=== PATIENT | female | born 1940 | race Two or more races ===

== ENCOUNTER 2018-02-27 12:46 | Emergency (ER) | payer MEDICARE, OTHER ==
[2018-02-27 12:51] VITALS: BP 130/63; PULSE 104; TEMP 98.6; BMI 23.0
--- NOTE | 2018-02-27 13:20 | PDOC ---
History of Present Illness - General Chief Complaint: Foreign Body (FB) Stated Complaint: EAR PROBLEM, FOREIGN BODY Time Seen by Provider: 02/27/18 13:03 History Source: Patient Exam Limitations: No Limitations - History of Present Illness Initial Comments: 02/27/18 13:16 This 78-year-old woman with history of hearing loss who presents emergency department with foreign body retained in her left ear after removing her hearing aids. Patient denies any pain but reports muffled hearing in affected ear. Patient has no complaints with her right ear. She denies any discharge or drainage from left ear. Past History - Past Medical History Allergies/Adverse Reactions: Allergies Allergy/AdvReac Type Severity Reaction Status Date / Time No Known Allergies Allergy Verified 02/27/18 12:48 Home Medications: Ambulatory Orders Acetaminophen [Tylenol] 650 mg PO Q4H PRN 09/11/16 Albuterol Sulfate Inhaler - [Ventolin Hfa Inhaler -] 2 inh PO Q4H PRN 09/11/16 Cetirizine HCl 10 mg PO DAILY 09/11/16 Enalapril Maleate [Vasotec] 20 mg PO DAILY 09/11/16 Glipizide [Glipizide ER] 5 mg PO DAILY 09/11/16 Metformin HCl 500 mg PO BID 09/11/16 Montelukast Na [Singulair -] 10 mg PO HS 09/11/16 Omeprazole 40 mg PO DAILY 09/11/16 Ranitidine HCl [Zantac] 150 mg PO DAILY 09/11/16 Simvastatin 20 mg PO HS 09/11/16 hydrALAZINE HCL [Apresoline -] 10 mg PO TID 09/11/16 Cancer: Yes (BREAST) COPD: No HTN: Yes Hypercholesterolemia: Yes - Suicide/Smoking/Psychosocial Hx Smoking History: Never smoked Have you smoked in the past 12 months: No Information on smoking cessation initiated: No Hx Alcohol Use: No Drug/Substance Use Hx: No Substance Use Type: None Review of Systems - Review of Systems Able to Perform ROS?: Yes Is the patient limited Korean proficient: No Constitutional: No: Symptoms Reported HEENTM: Yes: See HPI Respiratory: No: Symptoms reported Cardiac (ROS): No: Symptoms Reported ABD/GI: No: Symptoms Reported : No: Symptoms Reported Musculoskeletal: No: Symptoms Reported Integumentary: No: Symptoms Reported *Physical Exam - Vital Signs Last Vital Signs Temp Pulse Resp BP Pulse Ox 98.6 F 104 H 18 130/63 100 02/27/18 12:48 02/27/18 12:48 02/27/18 12:48 02/27/18 12:48 02/27/18 12:48 - Physical Exam HEENT: positive: Pharynx Normal, Other (Plastic noted in left external auditory canal pressed against the TM.) Respiratory/Chest: positive: Lungs Clear, Normal Breath Sounds. negative: Respiratory Distress, Accessory Muscle Use Cardiovascular: positive: Regular Rhythm, Regular Rate. negative: Murmur Medical Decision Making - Medical Decision Making 02/27/18 13:18 A/P: 78-year-old woman with foreign-body retained in her left ear Plastic visualized in the external auditory canal against the TM in the left ear. No erythema or drainage noted in the external auditory canal Right ear exam is within normal limits Foreign body removal using her [place] forceps performed without difficulty. Patient tolerated procedure well. Examination of the TM after removal reveals pearly zayas TM with appropriate light reflex. Discharge *DC/Admit/Observation/Transfer Diagnosis at time of Disposition: Foreign body in ear Qualifiers: Encounter type: initial encounter Laterality: left Qualified Code(s): T16.2XXA - Foreign body in left ear, initial encounter - Discharge Dispostion Disposition: HOME Condition at time of disposition: Stable Decision to Admit order: No - Referrals Referrals: Zina Rodriguez [Primary Care Provider] - - Patient Instructions Additional Instructions: Examination of your ear after removal reveals no signs or symptoms of infection. Return to emergency department for any drainage from the ear, hearing loss, fevers or any other concerns. Take very much for choosing us to provide emergent health care needs. - Post Discharge Activity
== END 2018-02-27 13:21 | disposition home or self-care (01) ==
LOC: JERFT 12:46
PROC: 09C47ZZ Extirpation of Matter from Left External Auditory Canal, Via Natural or Artificial Opening (ICD-10-PCS; principal; 2018-02-27)
DX: T16.2XXA Foreign body in left ear, initial encounter (principal)
CPT/HCPCS: 69200; 99281-25